=== PATIENT | female | born 1980 ===

== ENCOUNTER 2020-08-11 22:18 | Emergency (ER) | payer SELFPAY ==
[2020-08-12 00:36] LABS: Basophils # (Auto) 0.1 K/mm3 (0.0-0.1); Basophils % (Auto) 0.5 % (0.0-1.8); Eosinophils # (Auto) 0.1 K/mm3 (0.0-0.4); Eosinophils % (Auto) 0.9 % (0.0-4.3); Hematocrit 26.7 % (30.3-42.9); Hemoglobin 8.3 gm/dl (10.1-14.3); Lymphocytes # (Auto) 1.5 K/mm3 (1.2-5.4); Mean Corpuscular HGB Conc 31 % (30-34); Monocytes # (Auto) 0.7 K/mm3 (0.0-0.8); Platelet Count 635 K/mm3 (140-440); Red Blood Count 4.17 M/mm3 (3.65-5.03); Red Cell Distribution Width 18.3 % (13.2-15.2)
--- NOTE | 2020-08-12 00:47 | XRay Report ---
CHEST 2 VIEWS INDICATION / CLINICAL INFORMATION: CP. COMPARISON: None available. FINDINGS: SUPPORT DEVICES: None. HEART / MEDIASTINUM: No significant abnormality. LUNGS / PLEURA: No significant pulmonary or pleural abnormality. No pneumothorax. ADDITIONAL FINDINGS: No significant additional findings. IMPRESSION: 1. No acute findings. Signer Name: Yamileth Benito MD Signed: 08/12/2020 12:43 AM Workstation Name: [id number]
[2020-08-12 01:02] LABS: Alanine Aminotransferase 16 units/L (7-56); Albumin 4.1 g/dL (3.9-5); Blood Urea Nitrogen 6 mg/dL (7-17); Calcium 8.8 mg/dL (8.4-10.2); Hemolysis Index 0
[2020-08-12 01:10] LABS: BUN/Creatinine Ratio 15
[2020-08-12 01:11] LABS: Mean Corpuscular Volume 64 fl (79-97)
[2020-08-12] MEDS ORDERED: MORPHINE 4 MG/1 ML INJ IV ONE (04:30)
[2020-08-12] MEDS ORDERED: PANTOPRAZOLE 40 MG INJ IV ONE (04:30)
[2020-08-12] MEDS ORDERED: ONDANSETRON 4 MG/2 ML INJ IV ONE (04:30)
--- NOTE | 2020-08-12 04:37 | Emergency Department Report ---
ED Chest Pain HPI - General Chief Complaint: Chest Pain Stated Complaint: CHEST PAIN/HIGH BP PUI?: No Time Seen by Provider: 08/12/20 04:09 Source: patient Mode of arrival: Ambulatory Limitations: No Limitations, Language Barrier - History of Present Illness Initial Comments: CC: chest pressure, abdominal pain [employer] Services Vice President used to obtain history and discuss treatment plan. HPI: This is a 40 yo female without significant past medical history who present with chest pressure and rapid heartbeat today. Took aspirin. Chest pain is relieved. Now has sharp epigastric pain. NO radiation. "Very strong" pain. No known family hx of cardiac disease. Mother has hx of HTN MD Complaint: chest pain, other (abdominal pain) -: Gradual, This afternoon Onset: during rest Pain Location: substernal, epigastric Severity: severe Severity scale (0 -10): 7 Quality: sharp, pressure Consistency: other (chest pain resolved, now abdominal pain) Improves With: other (aspirin relieved chest pain) re: nausea Treatments Prior to Arrival: aspirin - Related Data Previous Rx's Medication Instructions Recorded Last Taken Type Famotidine [Pepcid] 20 mg PO BID 30 Days #60 tablet 08/12/20 Unknown Rx Allergies Allergy/AdvReac Type Severity Reaction Status Date / Time No Known Allergies Allergy Unverified 08/12/20 00:21 Heart Score - HEART Score History: Slightly suspicious EKG: Non-specific Age: < 45 Risk factors: No known risk factors Troponin: < normal limit HEART Score: 1 - EKG Read Time Time EKG Completed: 00:00 EKG Read Time: 00:00 ED Review of Systems ROS: Stated complaint: CHEST PAIN/HIGH BP Other details as noted in HPI Comment: All other systems reviewed and negative Constitutional: denies: fever, malaise Respiratory: denies: cough, shortness of breath Cardiovascular: chest pain Gastrointestinal: abdominal pain, nausea ED Past Medical Hx - Past Medical History Previous Medical History?: No - Surgical History Past Surgical History?: Yes Additional Surgical History: c-sec 3 - Family History Family history: hypertension - Social History Smoking Status: Never Smoker Substance Use Type: None - Medications Home Medications: Home Medications Medication Instructions Recorded Confirmed Last Taken Type Famotidine [Pepcid] 20 mg PO BID 30 Days #60 tablet 08/12/20 Unknown Rx ED Physical Exam - General Limitations: No Limitations, Language Barrier General appearance: alert, in no apparent distress - Head Head exam: Present: atraumatic, normocephalic - Eye Eye exam: Present: normal appearance - ENT ENT exam: Present: mucous membranes moist - Neck Neck exam: Present: normal inspection, full ROM - Respiratory Respiratory exam: Present: normal lung sounds bilaterally. Absent: respiratory distress - Cardiovascular Cardiovascular Exam: Present: regular rate, normal rhythm, normal heart sounds. Absent: systolic murmur, diastolic murmur, rubs, gallop - GI/Abdominal GI/Abdominal exam: Present: soft, normal bowel sounds. Absent: distended, tenderness, guarding, rebound - Extremities Exam Extremities exam: Present: normal inspection - Neurological Exam Neurological exam: Present: alert, oriented X3 - Psychiatric Psychiatric exam: Present: normal affect, normal mood - Skin Skin exam: Present: warm, dry, intact, normal color. Absent: rash ED Course Vital Signs 08/11/20 08/12/20 08/12/20 23:41 03:10 04:15 Temperature 99.1 F 98.6 F Pulse Rate 109 H 96 H 102 H Respiratory 16 18 22 Rate Blood Pressure 129/81 143/90 Blood Pressure 133/85 [Left] O2 Sat by Pulse 100 100 100 Oximetry 08/12/20 08/12/20 08/12/20 04:30 04:45 04:55 Temperature Pulse Rate 102 H 100 H Respiratory 18 23 18 Rate Blood Pressure 130/86 137/85 Blood Pressure [Left] O2 Sat by Pulse 100 100 Oximetry 08/12/20 08/12/20 08/12/20 05:00 05:15 06:15 Temperature Pulse Rate 99 H 93 H 92 H Respiratory 22 14 28 H Rate Blood Pressure 135/82 130/81 133/77 Blood Pressure [Left] O2 Sat by Pulse 97 100 Oximetry 08/12/20 08/12/20 06:30 07:35 Temperature Pulse Rate 90 101 H Respiratory 23 15 Rate Blood Pressure 124/77 Blood Pressure 128/79 [Left] O2 Sat by Pulse 100 100 Oximetry ED Medical Decision Making - Lab Data Result diagrams: 08/12/20 00:23 08/12/20 00:23 Laboratory Results - last 24 hr 08/12/20 08/12/20 08/12/20 00:23 00:23 03:17 WBC 10.2 RBC 4.17 Hgb 8.3 L Hct 26.7 L MCV 64 L MCH 20 L MCHC 31 RDW 18.3 H Plt Count 635 H Lymph % (Auto) 15.0 Giles % (Auto) 7.0 Eos % (Auto) 0.9 Baso % (Auto) 0.5 Lymph # (Auto) 1.5 Giles # (Auto) 0.7 Eos # (Auto) 0.1 Baso # (Auto) 0.1 Seg Neutrophils % 76.6 H Seg Neutrophils # 7.8 H Sodium 140 Potassium 5.1 H Chloride 103.2 Carbon Dioxide 28 Anion Gap 14 BUN 6 L Creatinine 0.4 L Estimated GFR > 60 BUN/Creatinine Ratio 15 Glucose 124 H Calcium 8.8 Total Bilirubin < 0.20 AST 17 ALT 16 Alkaline Phosphatase 145 H Troponin T < 0.010 < 0.010 Total Protein 7.5 Albumin 4.1 Albumin/Globulin Ratio 1.2 - EKG Data EKG shows normal: sinus rhythm, axis, intervals, QRS complexes, ST-T waves Rate: tachycardia - EKG Data 08/12/20 04:36 EKG obtained 0017 EKG interpreted by mo Sinus tachycardia rate 110 bpm normal axis prolonged OK interval normal QT interval nonspecific T wave pattern - Radiology Data Radiology results: report reviewed cxr 2 views: no acute findings according to radiology impression - Medical Decision Making 1. chest pain low risk for ACS, Heart SCore 1, referral request sent to [facility] for outpatient cardiology f/u, 2. abdominal pain: PUD/GERD suspected especially considering onset after aspirin therapy, rx: famotidine CT angiogram obtained to rule out PE CT abdomen/pelvis obtained to rule out acute intraabdominal inflammatory process such as cholecystitis, duodenitis, pancreatitis Critical care attestation.: If time is entered above; I have spent that time in minutes in the direct care of this critically ill patient, excluding procedure time. ED Disposition Clinical Impression: PUD (peptic ulcer disease), GERD (gastroesophageal reflux disease) Disposition: DC-01 TO HOME OR SELFCARE Is pt being admited?: No Does the pt Need Aspirin: No Condition: Stable Instructions: Peptic Ulcer, [id number], Gastroesophageal Reflux Disease, Adult, Pmpm-cd-Exal Prescriptions: Famotidine [Pepcid] 20 mg PO BID 30 Days #60 tablet Referrals: STEFFEN BUTLER MD [Staff Physician] - 3-5 Days SHREYAS RAMOS MD [Staff Physician] - [place] Print Language: PASHTO
--- NOTE | 2020-08-12 06:09 | Cat Scan Report ---
CTA CHEST WITH IV CONTRAST INDICATION / CLINICAL INFORMATION: Pt complains of chest pressure. Tachycardia. TECHNIQUE: Axial CT images were obtained through the chest after injection of 100 mL Omnipaque 350 IV contrast. 3 plane MIP and/or 3D reconstructions were produced. All CT scans at this location are performed usin g CT dose reduction for DESTIN by means of automated exposure control. COMPARISON: Chest radiograph same day FINDINGS: PULMONARY ARTERIES: No pulmonary emboli. THORACIC AORTA: No significant abnormality. HEART: No significant abnormality. CORONARY ARTERIES: No significant calcification. PLEURA: No pleural effusion. No pneumothorax. LYMPH NODES: No significant adenopathy. LUNGS: No acute air space or interstitial disease. ADDITIONAL FINDINGS: There is a prominent left axillary lymph node measuring up to 1.9 x 1.4 cm (seri es 2, image 22). UPPER ABDOMEN: No acute findings. SKELETAL STRUCTURES: No significant osseous abnormality. IMPRESSION: 1. No CT evidence for pulmonary embolism. 2. No acute findings. 3. There is a mildly enlarged left axillary lymph node which is indeterminate. Recommend clinical cor relation for potential causes of reactive lymphadenopathy, such as recent Covid vaccination on that s bettye. Recommend short interval follow-up left axillary ultrasound in 3 months to ensure stability or r esolution. Additionally, while there is no obvious breast lesion seen by CT, a mammogram could also b e performed if patient has not recently had one. Signer Name: Yamileth Benito MD Signed: 08/12/2020 6:05 AM Workstation Name: [id number]
--- NOTE | 2020-08-12 06:15 | Cat Scan Report ---
CT ABDOMEN AND PELVIS WITH CONTRAST INDICATION / CLINICAL INFORMATION: Pt complains of severe Epigastric Abdominal pain. TECHNIQUE: Axial CT images were obtained through the abdomen and pelvis after 100 mL Omnipaque [address] scans at this location are performed using CT dose reduction for ALARA by means of automated exposure control. COMPARISON: None available. FINDINGS: LOWER CHEST: No significant abnormality. LIVER: No significant abnormality. BILIARY SYSTEM: No significant abnormality. PANCREAS: No significant abnormality. SPLEEN: No significant abnormality. ADRENALS: No significant abnormality. KIDNEYS and URETERS: No significant abnormality. STOMACH / BOWEL: No significant abnormality. The appendix is normal. PERITONEUM: No free fluid. No free air. No fluid collection. LYMPH NODES: No significant adenopathy. VASCULAR STRUCTURES: No significant abnormality. URINARY BLADDER: No significant abnormality. REPRODUCTIVE ORGANS: Small intramural uterine fibroid in the anterior uterine body. ADDITIONAL FINDINGS: Postsurgical change along the lower anterior abdominal wall. SKELETAL SYSTEM: No significant abnormality. IMPRESSION: 1. No acute process identified within the abdomen or pelvis to account for abdominal pain. Signer Name: Yamileth Benito MD Signed: 08/12/2020 6:11 AM Workstation Name: [id number]
[2020-08-12 07:46] VITALS: BP 128/79
--- NOTE | 2020-08-13 17:33 | Electrocardiograph Report ---
[facility] Test Date: 2020-08-12 Test Time: 00:17:48 Pat Name: JUAN BOB Department: Room: Gender: F Chemistry Physics Teacher: HEATHER : 1980 Requested By: ANA LILIA TEE Order Number: [id number] Reading MD: Manpreet Magallanes Measurements Intervals [place] Rate: 105 P: 33 IA: 201 QRS: 33 QRSD: 69 T: QT: 233 QTc: 308 Interpretive Statements Sinus tachycardia Borderline prolonged IA interval Borderline T abnormalities, diffuse leads No previous ECG available for comparison Electronically Signed On 08-13-2020 17:33:07 EDT by Manpreet Magallanes
== END 2020-08-12 07:35 | disposition home or self-care (01) ==
LOC: ED 22:18
DX: K27.9 Peptic ulcer, site unspecified, unspecified as acute or chronic, without hemorrhage or perforation (principal); K21.9 Gastro-esophageal reflux disease without esophagitis; Z79.899 Other long term (current) drug therapy
CPT/HCPCS: 36415; 71046; 71275; 74177; 80053; 84484; 85025; 93005; 96374; 96375; 99284; C9113; J2270; J2405; Q9967